=== PATIENT | female | born 1950 | race Caucasian/White ===

== ENCOUNTER 2020-10-28 11:19 | Emergency (ER) | payer MEDICARE ==
[2020-10-28] MEDS ORDERED: Diazepam 10 MG/2 ML SYRINGE ONE (11:43)
[2020-10-28] MEDS ORDERED: methylPREDNISolone Sod Succ/PF 125 MG/2 ML VIAL ONE (11:43)
--- NOTE | 2020-10-28 21:43 | CT ---
CT OF THE LUMBAR SPINE 10/28/[address] of the lumbar spine was done in this patient with left sided sciatica, but who presents wit h worsening low back pain and radiculopathy after a slip and fall. No prior CT was present. A prior MRI from 2017 is present. No recent fracture or dislocation. Minimal anterolisthesis of L5 on S1 is present as before and is du e to severe facet arthritis at this level. There is some mild narrowing of the L1-L2 disc space. Find ings by level follow: T12-L1: No acute findings. L1-L2: There is some mild concentric bulging of the disc. There may be a little more focal protrusion centrally, but I cannot be entirely certain on this CT scan. MRI would be more sensitive. L2-L3: No acute findings. L3-L4: Concentric bulge of the disc. Some facet arthritis and hypertrophy. L4-L5: There is concentric bulge of the disc but there is a question if there might be a little more eccentric bulge on the left side laterally. I cannot tell if this causes any neural impingement or no t. MRI would be much more sensitive. Mild facet and ligamentous hypertrophy is present. L5-S1: There is a diffuse concentric bulge of the disc. Truly severe facet arthritis is present bila terally. I do not see a focal disc protrusion with any assurance. The SI joints are symmetrical. The sacrum appears intact, as does the coccyx. IMPRESSION: 1. No acute fracture seen. 2. 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 3. Concentric disc bulges as stated above. There may be a little more eccentric lateral bulge at L4-L5 on the left. An elective MRI might be considered at a future date if needed to tell if there i s any actual neural impingement here. Preliminary report called to Dr. Nicolas at 12:55 on 10/28/20. POS: HOME
== END 2020-10-28 13:20 | disposition home or self-care (01) ==
LOC: BURERS 11:19
DX: M51.26 Other intervertebral disc displacement, lumbar region (principal)
CPT/HCPCS: 72131; 96374; 96375; J2930; J3360

== ENCOUNTER 2023-07-23 08:51 | Outpatient (CLI) | payer MEDICARE | END 2023-07-23 08:52 | disposition home or self-care (01) | LOC: BURRAD 08:51 | PROVIDERS: ATTEND Family Medicine | DX: J32.9 Chronic sinusitis, unspecified (principal); J40 Bronchitis, not specified as acute or chronic | CPT/HCPCS: 71046 ==